=== PATIENT | female | born 1965 | race Caucasian/White ===

== ENCOUNTER 2021-02-14 06:20 | Outpatient (REF) | payer OTHER, SELFPAY ==
[2021-02-14 07:34] LABS: Alanine Aminotransferase 60 U/L (0-31); Albumin Level 3.8 g/dL (3.5-5.0); Alkaline Phosphatase 65 U/L (39-117); Anion Gap 10 (12-20); Aspartate Amino Transferase 18 U/L (5-31); Bilirubin Total 0.5 mg/dL (0.0-1.0); Blood Urea Nitrogen 17 mg/dL (9-16); Calcium 9.2 mg/dL (8.4-10.2); Carbon Dioxide 31 mmol/L (22-29); Chloride 105 mmol/L (96-108); Cholesterol 162 mg/dL; Estimated Glomerular Filt Rate > 60; Glucose Fasting 92 mg/dL (60-99); HDL Cholesterol 51 mg/dL; LDL Cholesterol Calculated 83 mg/dl; Potassium 4.3 mmol/L (3.3-5.1); Sodium 142 mmol/L (135-145); Total Protein 6.4 g/dL (6.5-8.0); Triglycerides 143 mg/dL
== END 2021-02-14 06:21 | disposition home or self-care (01) ==
LOC: HO.LAB 06:20
PROVIDERS: PCP Family Medicine; Visit Provider Family Medicine
DX: E78.00 Pure hypercholesterolemia, unspecified (principal); I10 Essential (primary) hypertension; Z79.899 Other long term (current) drug therapy; Z83.3 Family history of diabetes mellitus
CPT/HCPCS: 36415; 80053; 80061; 82550

== ENCOUNTER 2021-06-01 15:00 | Outpatient (REF) | payer OTHER, SELFPAY ==
--- NOTE | ~2021-06-01 | XR_ITS ---
EXAMINATION: XR ELBOW, LEFT CLINICAL INFORMATION: Pain left elbow COMPARISON: None TECHNIQUE: AP, lateral, and oblique views of the left elbow. FINDINGS: There is no fracture, dislocation, or destructive process. No focal joint narrowing or erosive change. No elbow capsular effusion. Bony mineralization is normal. XR/XR elbow LT min 3V IMPRESSION: Normal left elbow.
== END 2021-06-01 15:01 | disposition home or self-care (01) ==
LOC: HO.XRAY 15:00
PROVIDERS: PCP Family Medicine; Visit Provider Family Medicine
DX: M25.521 Pain in right elbow (principal); M25.421 Effusion, right elbow
CPT/HCPCS: 73080

== ENCOUNTER 2021-11-20 06:49 | Outpatient (REF) | payer OTHER, SELFPAY ==
[2021-11-20 07:58] LABS: Anion Gap 11 (12-20); Blood Urea Nitrogen 17 mg/dL (9-16); Carbon Dioxide 25 mmol/L (22-29); Chloride 107 mmol/L (96-108); Estimated Glomerular Filt Rate > 60; Sodium 139 mmol/L (135-145)
== END 2021-11-20 06:50 | disposition home or self-care (01) ==
LOC: HO.LAB 06:49
PROVIDERS: PCP Family Medicine; Visit Provider Family Medicine
DX: I10 Essential (primary) hypertension (principal)
CPT/HCPCS: 36415; 80051; 82565; 84520

== ENCOUNTER 2022-11-05 06:46 | Outpatient (REF) | payer OTHER, SELFPAY ==
[2022-11-05 08:21] LABS: Anion Gap 14 (12-20); Blood Urea Nitrogen 22 mg/dL (9-16); Carbon Dioxide 23 mmol/L (22-29); Chloride 106 mmol/L (96-108); Estimated Glomerular Filt Rate > 60; Potassium 4.3 mmol/L (3.3-5.1); Sodium 139 mmol/L (135-145)
== END 2022-11-05 06:47 | disposition home or self-care (01) ==
LOC: HO.LAB 06:46
PROVIDERS: PCP Family Medicine; Referring Provider Psychiatry & Neurology Neurology; Visit Provider Family Medicine
DX: I10 Essential (primary) hypertension (principal)
CPT/HCPCS: 36415; 80051; 82565; 84520

== ENCOUNTER 2023-09-09 18:20 | Outpatient (REF) | payer OTHER, SELFPAY | END 2023-09-09 18:21 | disposition home or self-care (01) | LOC: HO.LNP 18:20 | PROVIDERS: Visit Provider Family Medicine | DX: N39.0 Urinary tract infection, site not specified (principal) | CPT/HCPCS: 87086; 87088; 87186 ==

== ENCOUNTER 2023-10-16 14:42 | Outpatient (REF) | payer OTHER, SELFPAY ==
[2023-10-16 14:46] LABS: Urine Cytology See Pathology rpt
[2023-10-16 14:51] LABS: Appearance Urine Clear; Color Urine Yellow; Glucose Urine UA Negative (Negative); Leukocyte Esterase Urine Small (1+) (Negative); Nitrite Urine Negative (Negative); PH 5.5 (5.0-9.0); UMIC TRIGGER UACC YES; Urine Blood Negative (Negative); Urine Ketones Negative (Negative); Urine Protein Negative (Neg-Trace)
[2023-10-16 14:55] LABS: Bacteria Urine 1+ (None Seen); Hyaline Casts Urine 0-2 /LPF (0-2); RBC Urine 0-2 /HPF (0-2); Squamous Epithelial Cell Urine 0-2 /HPF (0-2); UACC Culture Trigger YES
== END 2023-10-16 14:43 | disposition home or self-care (01) ==
LOC: HO.LNP 14:42
PROVIDERS: Visit Provider Family Medicine
DX: N39.0 Urinary tract infection, site not specified (principal); R53.83 Other fatigue; J30.89 Other allergic rhinitis; H61.22 Impacted cerumen, left ear; E66.9 Obesity, unspecified; G35 Multiple sclerosis; K21.9 Gastro-esophageal reflux disease without esophagitis; R00.2 Palpitations; E78.00 Pure hypercholesterolemia, unspecified
CPT/HCPCS: 81001; 87086; 87088; 87186; 88112

== ENCOUNTER 2023-11-06 06:58 | Outpatient (REF) | payer OTHER, SELFPAY ==
[2023-11-06 08:21] LABS: Alanine Aminotransferase 22 U/L (0-31); Anion Gap 14 (12-20); Aspartate Amino Transferase 17 U/L (5-31); Blood Urea Nitrogen 19 mg/dL (9-16); Carbon Dioxide 25 mmol/L (22-29); Chloride 105 mmol/L (96-108); Estimated Glomerular Filt Rate > 60; Potassium 3.8 mmol/L (3.3-5.1); Sodium 140 mmol/L (135-145)
== END 2023-11-06 06:59 | disposition home or self-care (01) ==
LOC: HO.LAB 06:58
PROVIDERS: PCP Family Medicine; Visit Provider Family Medicine
DX: I10 Essential (primary) hypertension (principal); E78.00 Pure hypercholesterolemia, unspecified
CPT/HCPCS: 36415; 80051; 82550; 82565; 84450; 84460; 84520

== ENCOUNTER 2023-11-19 08:22 | Outpatient (REF) | payer OTHER, SELFPAY ==
--- NOTE | ~2023-11-19 | US_ITS ---
EXAMINATION: US RETROPERITONEAL COMPLETE (RENAL) CLINICAL INFORMATION: Recurrent UTI. COMPARISON: None available. TECHNIQUE: Real-time imaging of the kidneys and bladder. FINDINGS: RIGHT KIDNEY: 11.9 x 4.9 x 5.6 cm (SAG x AP x TRV). The kidney is normal in size, contour, and echogenicity. Renal cortical thickness is normal. No calculi or focal parenchymal lesions. No hydronephrosis. LEFT KIDNEY: 11.8 x 4.9 x 5.7 cm (SAG x AP x TRV). The kidney is normal in size, contour, and echogenicity. Renal cortical thickness is normal. No calculi or focal parenchymal lesions. No hydronephrosis. BLADDER: Well distended and normal. Bilateral ureteral jets are demonstrated. Prevoid bladder volume is 211 mL. Postvoid bladder volume is 15.2 mL. A small amount of debris is seen within the bladder. US/US retroperitoneal comp IMPRESSION: 1. Normal appearance of the kidneys. 2. Small amount of debris within the bladder.
== END 2023-11-19 08:23 | disposition home or self-care (01) ==
LOC: HO.HMGCX 08:22
PROVIDERS: PCP Family Medicine; Visit Provider Family Medicine
DX: N39.0 Urinary tract infection, site not specified (principal)
CPT/HCPCS: 76770

== ENCOUNTER 2024-07-28 06:54 | Outpatient (REF) | payer OTHER, SELFPAY ==
[2024-07-28 07:08] LABS: MANUAL DIFF FLAG NO
[2024-07-28 07:40] LABS: Basophils Percent Auto 0.6 % (0-2); Eosinophils Absolute Auto 0.2 X10*3/uL (0.0-0.4); Eosinophils Percent Auto 2.7 % (0-4); Hematocrit 42.8 % (37.0-47.0); Hemoglobin 14.4 g/dl (12.0-16.0); Imm Gran Abs Auto 0.04 X10*3/uL (0.00-0.03); Imm Gran Pct Auto 0.6 % (0.0-0.4); Lymphocytes Absolute Auto 2.5 X10*3/uL (1.2-4.9); Lymphocytes Percent Auto 36.8 % (20-40); Mean Corpuscular HGB Conc 33.6 g/dl (31.0-35.0); Mean Corpuscular Hemoglobin 28.4 pg (27.0-33.0); Mean Corpuscular Volume 84.4 fL (80.0-98.0); Mean Platelet Volume 10.4 fL (9.4-12.3); Monocytes Absolute Auto 0.5 X10*3/uL (0.1-1.2); Monocytes Percent Auto 6.9 % (2-11); Neutrophils Absolute Auto 3.5 x10*3/uL (2.0-8.3); Neutrophils Percent Auto 52.4 % (45-73); Platelet Count 256 X10*3/uL (160-400); Red Blood Count 5.07 X10*6/uL (4.20-5.50); Red Cell Distribution Width 13.5 % (11.0-16.0); White Blood Count 6.7 X10*3/uL (4.8-10.8)
[2024-07-28 08:17] LABS: Erythrocyte Sedimentation Rate 16 MM/HR (0-20)
[2024-07-28 08:27] LABS: Alanine Aminotransferase 25 U/L (0-31); Alkaline Phosphatase 69 U/L (39-117); Anion Gap 11 (12-20); Aspartate Amino Transferase 18 U/L (5-31); Bilirubin Total 0.4 mg/dL (0.0-1.0); Blood Urea Nitrogen 18 mg/dL (9-16); Carbon Dioxide 23 mmol/L (22-29); Chloride 109 mmol/L (96-108); Estimated Glomerular Filt Rate > 60; Glucose Random 107 mg/dL (60-115); Potassium 4.1 mmol/L (3.3-5.1); Sodium 139 mmol/L (135-145); Total Protein 7.1 g/dL (6.5-8.0)
[2024-07-28 08:46] LABS: Ferritin 237 ng/mL (10-250)
== END 2024-07-28 06:55 | disposition home or self-care (01) ==
LOC: HO.LAB 06:54
PROVIDERS: PCP Family Medicine; Visit Provider Family Medicine
DX: R53.83 Other fatigue (principal); E78.00 Pure hypercholesterolemia, unspecified; Z79.899 Other long term (current) drug therapy
CPT/HCPCS: 36415; 80053; 82378; 82550; 82728; 85025; 85652

== ENCOUNTER 2024-11-26 08:07 | Outpatient (AMB) | payer OTHER, SELFPAY ==
--- OUTSIDE RECORDS SUMMARY | 2024-11-26 08:10 | XMS_ITS ---
Author Name [facility] Organization Unknown History of Medication Use Medication Directions Dispensed Refills Start Date End Date Stat us Xiidra (dropperette) one drop in each eye twice daily 12/28/2018 completed atorvastatin completed Avonex Pen 30 mcg/0.5 mL intramuscular kit complet ed Co Q-10 completed Encounters Encounter Type Encounter Reason Primary Diagnosis Location Date Ambulatory [facility] 08/2024 Care Team Organization Name Specialty Phone Email Start Date End Da isabel [facility] [place] [facility] 2024 [facility] 07/22/2024
--- NOTE | 2024-11-26 10:37 | A.OFFVIS_ITS ---
VS Expanded 11/26/24 11:01 Height 5 ft 4 in Weight 213 lb 8 oz BMI 36.6 Body Fat % 39.3 Body Fat Mass 84 Fat Free Mass 129.6 Visceral Fat Rating 12 Body Water % 43 Body Water Mass 92 Basal Metabolic Rate/Score 1,770 Intake Visit Reasons: [employer] [facility] Allergies Erythromycin Adverse Reaction (Unknown, Uncoded 11/26/24 10:38) Vomiting Medication List - Last Reconciled 11/26/24 by Joe Luu MD ascorbic acid (vitamin C) 1 g PO DAILY atorvastatin 10 mg PO DAILY cetirizine (Zyrtec) 10 mg PO DAILY PRN cholecalciferol (vitamin D3) 125 mcg PO DAILY coenzyme Q10 (CoQ-10) 100 mg PO DAILY losartan 100 mg PO DAILY methenamine hippurate 1 g PO BID vrnfbzqs-qow-pgjq-FA-vit K-lut 4 mg iron-200 mcg-25 mcg (Centrum Minis Women 50 Plus) tabs PO omeprazole 20 mg PO DAILY turmeric root extract 300 mg PO BID HPI HPI [employer] [facility]: Details: Start time: 10.27am, End time: 11.27am ?I spent 55 minutes speaking with the patient on the phone plus an additional 5 minutes reviewing and updating records for a total of 60 minutes HPI Comments Details: Previous weight loss efforts: WW, Noom (26lbs), Nutrisystem, Intermittent fasting Wakes up: 5am, Sleeps: 10pm Breakfast: 9am (yogurt, Fairlife protein shake) Lunch: 12pm (salad, protein and fruit) Dinner: 6pm (chicken, vegetables, pasta) Snacks: 8pm (Nutela, pretzels, tostitos) Exercise: has home treadmill Beverages: Coffee (12oz/d with creamer), tea: none, soda: none, juice: none, ETOH: 2/month [facility] Surgical History (Updated 11/26/24 @ 10:51 by Joe Luu MD) Status post panniculectomy History of hysterectomy History of appendectomy History of tonsillectomy Telehealth Telehealth Telehealth Platform: Telephone Location of provider rendering services: practice address Location of patient: address on file Patient Identification confirmed using: Name, : Yes Telehealth method: voice only Patient verbally consented to treatment: Yes Patient verbally consented to billing insurance company: Yes Patient informed of any privacy concerns related to visit: Yes Minutes spent on Phone/Video with Pt.: 59 Assessment & Plan Assessment & Plan (1) Obesity: Code(s): E66.9 - Obesity, unspecified Category: Medical Qualifiers: Obesity type: due to excess calories Obesity classification: adult class 2 (BMI 35 - 39.9) Serious obesity comorbidity presence: with serious comorbidity Body mass index: BMI 36.0-36.9 Qualified Code(s): E66.812 - Obesity, class 2; E66.01 - Morbid (severe) obesity due to excess calories; Z68.36 - Body mass index [BMI] 36.0-36.9, adult Plan: 1. We discussed in detail the available therapeutic options: 1) our lifestyle intervention program that has an average weight loss of 10% in 3 months.? 2) Weight loss medications. We also discussed that you can self pay and the cost is $399 for the first month and $499 for any other month thereafter. 3) We also discussed about the lap sleeve gastrectomy. I emphasized the importance of close follow-up, adherence to instructions and good communication. The surgery does not replace the need to change your lifestlyle which is the cause of the obesity problem. The surgery provides the motivation to try again to change your lifestyle, it reduces the appetite and make the transition to a better lifestyle easier and doubles the amount of weight you would lose compared to doing the lifestyle change without the surgery. You will need to be on a liquid diet with protein shakes for 2 weeks before surgery to maximize weight loss and boost your nutritional status to recover better from surgery and also for the first two weeks after surgery to let the stomach heal before we introduce other foods. After the first 2 weeks we will introduce protein bars and soft foods like scrambled eggs, cottage cheese and yogurt and after the 6th week will introduce meat, fish and cooked vegetables in small amounts. Over time you should be able to eat everything in small amounts. Side effects like nausea, vomiting, heartburn or abdominal pain are not common in the practice unless you are not following in the practice. This operation requires lifetime commitment to following in our practice and communication with me. You will much less weight and experience side effects if you don?t communicate or not following in the practice. Complications are rare and in our practice is about 1/10 of the national average. The patient prefers to try the anti-obesity medications. 2. You will receive a link of our software jose to generate an individualized nutritional and exercise plan specific for you. Please send me a screenshot of the plans you will generate Meal to include lean meat (beef, fish, pork, turkey, chicken), or persian yogurt, or egg whites, or beans with a salad with olive oil and fruits (berries, pears, apples, kiwi). Avoid salt, breads, potatoes, rice, pasta, desserts. ?3. If you choose shakes, each shake would be drunk slowly, like coffee in a period of 2 hours. ?4. If you choose bars, cut each bar in 4 pieces and eat each piece in 30min ?to make each bar last 2 hours. ?5. I emphasized the importance of measuring accurately the food portion and measure it when serving the food in plate ?6. The meal portions include a specific number of forks of meat and salad. You always eat the meat portion but you can replace up to half of salad/vegetables portion with rice, potatoes or pasta, or a fruit ?if you like. The less you do it the better weight loss will be. ?7. One full-size fork is what it can be scooped on the fork without falling aside and not what can be bit with the fork. Use regular forks like those you find in a typical restaurant. ?8.? Please buy the body composition scale we discussed and send me weight measurements as soon as possible and then once a week. Always include your diet and exercise plan. 9. The best choice would be to use your treadmill at home that can track calories. You can create and exercise plan with the [employer] jose. 10. Start the Zepbound when you get your body composition scale once a week. Use a calorie-counting jose to track your daily calories to create a calorie deficit with a target of consuming 1877-6795 calories per day. We discussed the potential side effects of Zepbound such as nausea, vomiting, abdominal pain, diarrhea and constipation and you will need to contact me if any of these symptoms occur or for any other new symptom you may experience ?11. Goal is to lose at least 1.5-2lbs per week ?12. Goal to lose at least 10% of your weight, which is about 23lbs. Minimum weight goal: 190lbs 13. Please follow the diet plan exactly without any change. If you don't like something about the plan or you feel hungry you need to communicate with me so I can help you revise the plan. You should not change the plan yourself. Medications: New tirzepatide (weight loss) (Zepbound) for 4 weeks 2.5 mg (0.5 mL) subcut QWEEK 2 mL 0RF E66.9 - Obesity, unspecified, Z68.36 - Body mass index [BMI] 36.0-36.9, adult
[2024-11-26 11:01] VITALS: BMI 36.6
== END 2024-11-26 11:27 | disposition home or self-care (01) ==
LOC: HO.HBS 08:07
PROVIDERS: PCP Family Medicine; Visit Provider Surgery
DX: E66.812 Obesity, class 2 (principal); E66.01 Morbid (severe) obesity due to excess calories; Z68.36 Body mass index [BMI] 36.0-36.9, adult
CPT/HCPCS: 98011

== ENCOUNTER → 2024-11-26 08:07 | Outpatient (BNVA) | payer OTHER, SELFPAY | PROVIDERS: PCP Family Medicine; Visit Provider Surgery ==

== ENCOUNTER → 2024-12-03 15:17 | Outpatient (BNVA) | payer OTHER, SELFPAY | PROVIDERS: PCP Family Medicine; Visit Provider Physician Assistant Surgical ==

== ENCOUNTER → 2024-12-08 15:49 | Outpatient (BNVA) | payer OTHER, SELFPAY | PROVIDERS: PCP Family Medicine; Visit Provider Physician Assistant Surgical ==

== ENCOUNTER 2025-03-15 16:34 | Outpatient (AMB) | payer OTHER, SELFPAY ==
--- NOTE | 2025-03-15 16:40 | A.OFFPC_ITS ---
Vital Signs 03/15/25 16:46 Height 5 ft 4 in BP 104/70 Pulse 85 Pulse Source Pulse Oximeter Temp 97.4 F Temp Source Temporal Artery Scan Pulse Oximetry (%) 98 Oxygen Delivery Method Room Air Intake Visit Reasons: 4 MONTH FOLLOW UP-STANISLAV PT Patient Case Coordinator Required: No Accompanied by: Self / Same As Patient Allergies Erythromycin Adverse Reaction (Unknown, Uncoded 03/15/25 16:40) Vomiting Tobacco use date assessed: 03/15/25 Dental Screening Dental Screen Date: 03/15/25 Did you have a dental visit in the last 12 months?: Yes Did you have a dental problem in the last 6 months where you did not have access to dental care?: No Was dental information given to patient?: No HPI HPI Comments History of Present Illness Details 59-year-old female with history of hyper tension, GERD, multiple sclerosis, hypercholesterolemia, obesity presenting to the office today for management of chronic conditions and to establish care. GERD-has been noncompliant with her omeprazole for several weeks due to increased stressors related to the passing of her father as well as taking care of him. During this time, symptoms were quite uncontrolled and still has a raspy voice as a result. She is also taking turns appetite to help with weight loss that may be contributing. No dysphagia, odynophagia, globus sensation, nausea, vomiting, diarrhea, constipation, melena, hematochezia, hematemesis. No abdominal pain. She has concerns about the uncontrolled GERD symptoms as her dad from a perforated ulcer. Concerns about H pylori Hypercholesterolemia-due for lipid panel. On atorvastatin 10 mg daily Hypertension-blood pressure in the office 104/70. Compliant with losartan 100 mg daily. Recurrent UTI-stable on methenamine. Had labs on her medication for several weeks and did ultimately end up with a UTI, currently finishing course of Bactrim. Multiple sclerosis-following with Dr. Mota at [facility]. Lovenox discontinued in April and has been stable since. Obesity-following with bariatric surgery. On tirzepitide, taking multivitamin. Has lost 47 lb since October. Health maintenance: Due for colonoscopy early next year. Dr. Toney Mammogram scheduled 03/23 Following annually with fur coat sewer, Pap smear is up-to-date. [facility] ROS: none EXAM: Constitutional - Awake and Alert, No apparent distress Eyes - PERRL Cardiovascular - S1S2, RRR, No edema Respiratory - Normal lung expansion, Normal respiratory effort, No respiratory distress, CTA bilaterally Extremities - no calf tenderness bilaterally, no swelling Skin - Warm/Dry Neurological - Alert & oriented x3 Psychological - Appropriate affect [facility] Medical History (Updated 03/15/25 @ 17:16 by WERNER Mistry) Multiple sclerosis Vitamin D deficiency BMI 31.0-31.9,adult Surgical History (Updated 11/26/24 @ 10:51 by Joe Luu MD) Status post panniculectomy History of hysterectomy History of appendectomy History of tonsillectomy Family History (Updated 03/15/25 @ 17:09 by WERNER Mistry) Sister Multiple sclerosis Sister Lung cancer Daughter Breast cancer Mother CAD (coronary artery disease) Father CAD (coronary artery disease) Social History Housing: House Patient Tobacco Use Status: Former Tobacco user (Quite in 1998) e-Cigarette/Vaping Use: Never Used service: No Current occupational status: employed Current occupation: [employer] Cognitive needs: No Hearing needs: No Vision needs: Yes (Rx glasses) Questionnaire PHQ-9 Over the last 2 weeks, how often have you been bothered by any of the following problems? 1. Little interest or pleasure in doing things: not at all 2. Feeling down, depressed, or hopeless: not at all 3. Trouble falling or staying asleep, or sleeping too much: several days 4. Feeling tired or having little energy: several days 5. Poor appetite or overeating: not at all 6. Feeling bad about yourself - or that you are a failure or have let yourself or your family down: not at all 7. Trouble concentrating on things, such as reading the newspaper or watching television: not at all 8. Moving or speaking so slowly that other people could have noticed. Or the opposite - being so fidgety or restless that you have been moving around a lot more than usual: not at all 9. Thoughts that you would be better off or of hurting yourself in some way: not at all Total score: 2 Depression Screening Interpretation: Negative Depression Screening Done: Yes Source: Developed by Drs. Manuel Hassan, Flaquita B.WOracio Tse and colleagues, with an educational nelli from [facility] [facility] [employer] [facility]. Thrive Questionnaire Date Thrive assessed: 03/15/25 I am a: Patient What is your living situation today?: I have a steady place to live Within the past 12 months, did the food you bought not last and you didn't have the money to get more?: Never true Within the past 12 months, did you worry whether your food would run out before you got money to buy more?: Never true Do you have trouble paying for medicines?: No Do you have trouble getting transportation to medical appointments?: No Do you have trouble paying your heating and electricity bill?: No Do you have trouble taking care of your child, family member or friend?: No Do you have trouble with day-to-day activities such as bathing, preparing meals, shopping, managing finances, etc.?: No Are you currently unemployed and looking for a job?: No Are you interested in more education?: No Please select the resources that you would like help with: None THRIVE Score: 0 AUDIT C Alcohol Use Questionnaire (AUDIT-C) 1. How often do you have a drink containing alcohol?: Monthly or less Total Score: 1 AUSTEN-7 AMB Questionnaire AUSTEN-7 Date AUSTEN - 7 assessed: 03/15/25 Feeling nervous, anxious, or on edge: 0 = Not at all Not being able to stop or control worryin = Not at all Worrying too much about different things: 0 = Not at all Trouble relaxin = Not at all Being so restless that it is hard to sit still: 0 = Not at all Becoming easily annoyed or irritable: 0 = Not at all Feeling afraid as if something awful might happen: 0 = Not at all Total AUSTEN-7 score (0-4 normal; 5-9 mild; 10-14 moderate; 15-21 severe): 0 Source: Developed by Drs. Manuel Hassan, Oracio Abernathy and colleagues, with an educational nelli from [employer] [facility] [employer] [facility]. Physical exam (Primary Care) Vital Signs: Last Vital Signs Temp 97.4 F 03/15/25 16:46 Pulse 85 03/15/25 16:46 BP 104/70 03/15/25 16:46 Pulse Ox 98 03/15/25 16:46 Oxygen Delivery Method Room Air 03/15/25 16:46 Tobacco/Smoking Status: Tobacco use Status Tobacco use date assessed 03/15/25 03/15/25 16:49 Patient Tobacco Use Status Former Tobacco user (Quite 03/15/25 16:49 in 1998) e-Cigarette/Vaping Use Never Used 03/15/25 16:49 PHQ-9: PHQ-9 Score PHQ-9: Total score 2 03/15/25 16:49 Depression Screening Interpretation: Negative Thrive Assessment: Date of Thrive Assessment Date Thrive assessed 03/15/25 03/15/25 16:49 Coding Level of Care Code New Pt Level 4 (26726) Complex EM visit Add On G2211 Diagnoses GERD (gastroesophageal reflux disease) K21.9 Multiple sclerosis G35 Hypertension I10 Hyperlipidemia E78.5 Class 2 severe obesity due to excess calories with serious comorbidity and body mass index (BMI) of 36.0 to 36.9 in adult E66.812; E66.01; Z68.36 Obesity type: due to excess calories Obesity classification: adult class 2 (BMI 35 - 39.9) Serious obesity comorbidity presence: with serious comorbidity Body mass index: BMI 36.0-36.9 Assessment & Plan Assessment & Plan (1) GERD (gastroesophageal reflux disease): Code(s): K21.9 - Gastro-esophageal reflux disease without esophagitis Category: Medical Plan: Advised to hold omeprazole for 2 weeks. Check H pylori breath test, may resume once completed. Avoid triggers. Discussed that to tirzepitide can cause these symptoms as well. (2) Multiple sclerosis: Code(s): G35 - Multiple sclerosis Category: Medical Plan: Stable. Continue following with [facility]. (3) Hypertension: Code(s): I10 - Essential (primary) hypertension Category: Medical Plan: Controlled. Continue losartan 100 mg daily (4) Hyperlipidemia: Code(s): E78.5 - Hyperlipidemia, unspecified Category: Medical Plan: Lipid panel ordered. Continue with atorvastatin (5) Obesity: Code(s): E66.9 - Obesity, unspecified Category: Medical Qualifiers: Obesity type: due to excess calories Obesity classification: adult class 2 (BMI 35 - 39.9) Serious obesity comorbidity presence: with serious comorbidity Body mass index: BMI 36.0-36.9 Qualified Code(s): E66.812 - Obesity, class 2; E66.01 - Morbid (severe) obesity due to excess calories; Z68.36 - Body mass index [BMI] 36.0-36.9, adult Plan: Congratulated on weight loss thus 4. Continue following bariatric surgery and continues at bound. Continue with healthy diet and incorporate exercise Plan Follow-up in the office in 6 months with labs completed following today's visit Orders: Orders H Pylori Breath Test Today E55.9 - Vitamin D deficiency, unspecified, E78.5 - Hyperlipidemia, unspecified, I10 - Essential (primary) hypertension, K21.9 - Gastro-esophageal reflux disease without esophagitis TSH reflex Free T4 Today E55.9 - Vitamin D deficiency, unspecified, E78.5 - Hyperlipidemia, unspecified, I10 - Essential (primary) hypertension, K21.9 - Gastro-esophageal reflux disease without esophagitis Vitamin B12 Today E55.9 - Vitamin D deficiency, unspecified, E78.5 - Hyperlipidemia, unspecified, I10 - Essential (primary) hypertension, K21.9 - Gastro-esophageal reflux disease without esophagitis Basic Metabolic Panel Today E55.9 - Vitamin D deficiency, unspecified, E78.5 - Hyperlipidemia, unspecified, I10 - Essential (primary) hypertension, K21.9 - Gastro-esophageal reflux disease without esophagitis Lipid Panel Today E55.9 - Vitamin D deficiency, unspecified, E78.5 - Hyperlipidemia, unspecified, I10 - Essential (primary) hypertension, K21.9 - Gastro-esophageal reflux disease without esophagitis Vitamin D 25-OH Total Today E55.9 - Vitamin D deficiency, unspecified, E78.5 - Hyperlipidemia, unspecified, I10 - Essential (primary) hypertension, K21.9 - Gastro-esophageal reflux disease without esophagitis Referrals Gastroenterology Referral Z12.11 - Encounter for screening for malignant neoplasm of colon
[2025-03-15 16:46] VITALS: BP 104/70; PULSE 85; TEMP 36.3; O2SAT 98
--- OUTSIDE RECORDS SUMMARY | 2025-03-15 18:44 | XMS_ITS ---
Author Name [facility] Organization Unknown History of Medication Use Medication Directions Dispensed Refills Start Date End Date Stat us Xiidra (dropperette) one drop in each eye twice daily 12/28/2018 completed atorvastatin completed Avonex Pen 30 mcg/0.5 mL intramuscular kit complet ed Co Q-10 completed Allergies Allergen Reaction Severity Comment Documented Date Source Statu s ERYTHROMYCIN CT_[facility] ERYTHROMYCIN BASE [facility] Encounters Encounter Type Encounter Reason Primary Diagnosis Location Date Ambulatory [facility] 08/2024 Care Team Organization Name Specialty Phone Email Start Date End Da te [facility] [place] Primary [facility] 2024 [facility] 07/22/2024
--- OUTSIDE RECORDS SUMMARY | 2025-03-15 18:44 | XMS_ITS | Patient Health Record ---
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 Name Role Phone Lazaro (RETIRED) Munir TAYLOR Primary Care Provider Unavailable Manuel Toney Unavailable [phone] Allergies Allergen (clinical drug ingredient) Drug/Non Drug Allergy documented on EMR Reaction Allergy Type Onset Date Status erythromycin Erythromycin Unknown Drug Allergy A ctive Reason For Referral No Information Medications Medication SIG (Take, Route, Frequency, Duration) Notes Start Date End Date Status Avonex Pen 30 MCG/0.5ML 0.5 ml Intramuscular weekly Active Atorvastatin Calcium 10 MG 1 tablet Orally Once a day A ctive CoQ-10 100 MG 1 capsule with a alex l Orally Once a day Active Problems Problem Type SNOMED Code ICD Code Onset Dates Problem Status W/U Status Risk Notes Problem [id number] Encounter for screening for malignant neoplasm of colon (Z12.11) Active confirmed Problem Screening for malignant neoplasm of rectum ([id number]) Encounter for screening for malignant neoplasm of rectum (Z12.12) Active confirmed Problem [id number] Preprocedural examination (Z01.818) Active confirmed Problem [id number] Pre-procedure la b exam (Z01.812) Active confirmed Plan Of Treatment Future Test Test Name Order Date COLONOSCOPY 07/10/2016 Insurance Providers Payer Name Payer Address Payer Phone Subscriber Number Group Number Insured Name Patient Relationship to Insured Coverage Start Date Coverage End Date [employer] [address] [place] [address] [id number] DODIE CHADWICK Self - patient is the insured Medical (General) History Medical History History ICD Code Denies VA,DM,CVA,Lung disease,renal dise ase Multiple sclerosis--on Avonex Hyperlipdemia Surgical History Surgery Date(Month/Year) tonsillectomy 1968 appendectomy 1974 Bladder suspension 2008 Partial hysterectomy 2009 abdominoplasty 2015
--- OUTSIDE RECORDS SUMMARY | 2025-03-15 18:44 | XMS_ITS | Clinical Summary ---
Author Organization [facility] Address [address] [place] [address] Care Team Providers Care Integrated Circuit Design Engineer Name Role Phone Munir Willis Primary Care Provider [phone] Allergies Active Allergy Reactions Criticality Noted Date Comments Erythromycin Vomiting 09/13/2015 Erythromycin Base Vomiting Medications atorvastatin (LIPITOR) 10 mg tablet 08/01/2017 Active coenzyme Q10 100 mg capsule CoQ-10 100 MG Oral Capsule TAKE 1 CAPSULE DAILY Refills: 0 Active Active fluticasone (FLONASE) 50 mcg/actuation nasal spray INHALE 1 SPRAY INTO BOTH NOSTRILS TWICE A DAY NEEDED 3 08/04/2017 Active cetirizine (ZyrTEC) 10 mg tablet Zyrtec 10 MG TABS TAKE 1 TABLET DAILY. Refills: 0 Active Active multivitamin capsule Take 1 capsule by mouth daily. Active NON FORMULARY 1,000 mg once a day. Tumeric Active losartan (COZAAR) 100 mg tablet Take 100 mg by mouth once a day. Active vitamin D3 25 mcg (1,000 unit) capsule Take 1 capsule by mouth once a day. Active omeprazole (PriLOSEC) 20 mg capsule Take 20 mg by mouth once a day. Active methenamine (HIPREX) 1 gram tablet Take 1 g by mouth 2 times a day. 08/11/2024 Active Active Problems Problem Noted Date Diagnosed Date Multiple sclerosis 04/12/2015 Social History Tobacco Use Types Packs/Day Years Used Date Smoking Tobacco: Former Smokeless Tobacco: Never Tobacco Cessation:Counseling Given: Not Answered Comments Unknown Sex and Gender Information Value Date Recorded Sex Assigned at Female 10/05/2021 12:04 PM EDT Legal Sex Female 6:52 PM EDT Gender Identity Female 10/05/2021 12:04 PM EDT Sexual Orientation Straight 10/05/2021 12 :04 PM EDT Last Filed Vital Signs Vital Sign Reading Time Taken Comments Blood Pressure 138/83 11/01/2024 10:51 AM EDT Pulse 65 11/01/2024 10:51 AM EDT Temperature 36.8 C (98.3 F) 10/08/2021 10:50 AM EDT Respiratory Rate - - Oxygen Saturation 96% 10/01/2017 2:50 PM EDT RA Inhaled Oxygen Concentration - - Weight 92.4 kg (203 lb 9.6 oz) 10/02/2018 10:44 AM EDT Height 162.6 cm (5' 4 ) 08/28/2016 11:48 AM EST Body Mass Index 34.95 08/28/2016 11:48 AM EST Plan of Treatment Upcoming Encounters Date Type Department Care Team (Late st Contact Info) Description 11/07/2025 11:00 AM EDT Office Visit [facility] [address] [place] [address] Auricular Detoxification Specialist: Thomas River MD PhD [address] [place] [address] Health Maintenance Due Date Last Done Comments Cervical Cancer Screening 1964 Cologuard 1964 Colon Cancer Screening 1964 Colonoscopy 1964 FOBT / Fit Test 1964 HIV Screening 1964 HPV and Pap Smear 1964 Hepatitis C Screening 1964 Pap Smear 1964 Sigmoidoscopy [address] Lung Cancer Screening (Baseline) 2014 Pneumococcal Vaccine: 50+ Years (1 of 1 - PCV) 2014 Alcohol/Substance Use Screening 06/23/2024 Depression Screening and Follow-Up 06/23/2024 Social Drivers of Health Annual Screening 06/23/2024 COVID-19 Vaccine ( season) 2025 04/11/2023, 02/15/2022, 09/14/2021, Additional history exists Influenza Vaccine (#1) 2025 4, 03/02/2023, 03/25/2022, Additional history exists DTaP,Tdap,and Td Vaccines (2 - Td or Tdap) 03/12/2030 03/12/2020 RSV Vaccine (60+ years old and patients) (1 - 1-dose 75+ series) 2039 Zoster Vaccines Completed 12/09/2020, 06/30/2020 Hepatitis B Vaccines Aged Out No long er eligible based on patient's age to complete this topic Insurance [facility] [place] [id number] Care Teams Integrated Circuit Design Engineer Relationship Specialty Start Date End Date Munir Willis [address] [place] [address] [place] [address] PCP - General 01/09/17
== END 2025-03-15 17:13 | disposition home or self-care (01) ==
LOC: HO.HMCHD 16:35
PROVIDERS: PCP Family Medicine; Visit Provider Physician Assistant
DX: K21.9 Gastro-esophageal reflux disease without esophagitis (principal); G35 Multiple sclerosis; I10 Essential (primary) hypertension; E78.5 Hyperlipidemia, unspecified; E66.812 Obesity, class 2; E66.01 Morbid (severe) obesity due to excess calories; Z68.36 Body mass index [BMI] 36.0-36.9, adult